=== PATIENT | female | born 1990 | race Caucasian/White ===

== ENCOUNTER 2020-08-13 12:27 | Outpatient (CLI) | payer BC, MEDICAID, SELFPAY ==
--- NOTE | ~2020-08-13 | US_ITS ---
EXAMINATION: US OB <= 14 weeks fetus DATE: 08/13/2020 13:02 INDICATION: Gestational dating TECHNIQUE: Real-time transabdominal obstetric ultrasound. FINDINGS: No prior studies for comparison. The uterus measures 10.5 x 6.9 x 7 cm. There is an intrauterine gestational sac, with pole iden tified. The crown rump length measures 2.25 cm, which correlates with a estimated gestational age of 9 weeks 0 days. heart tones are identified measuring 169 bpm. The ovaries are not visualized . IMPRESSION: 1. SL IUP with an EGA of 9 weeks, 0 days (EDC by current ultrasound of 03/18/2021). Reviewed, dictated and finalized at location A. INE I COREMAKER IMPRESSION: 1. SL IUP with an EGA of 9 weeks, 0 days (EDC by current ultrasound of ).
== END 2020-08-13 12:28 | disposition home or self-care (01) ==
PROVIDERS: Visit Provider Physician Assistant
DX: Z34.91 Encounter for supervision of normal pregnancy, unspecified, first trimester (principal); Z3A.09 9 weeks gestation of pregnancy
CPT/HCPCS: 76801

== ENCOUNTER 2020-10-21 15:35 | Outpatient (CLI) | payer BC, MEDICAID, SELFPAY ==
--- NOTE | ~2020-10-21 | US_ITS ---
EXAMINATION: US OB /maternal detail DATE: 10/21/2020 16:20 INDICATION: Routine care. TECHNIQUE: Real-time ultrasound of the pelvis was performed. COMPARISON: Ultrasound 08/13/2020 FINDINGS: There is a single living fetus in vertex presentation. The placenta is posterior, 5.8 cm from the ce rvix. heart rate is 147 beats per minute (bpm). The amniotic fluid index is 13.5 cm, which is n ormal. The following biometric data were obtained: Biparietal diameter (BPD): 4.3 cm; head circumference (HC): 16.2 cm; abdominal circumference (AC): 13 .7 cm; femur length (FL): 2.9 cm. These measurements are concordant. Estimated weight is 271 g +/- 41 g, which correlates with 57th percentile when 03/18/21 is used as estimated date of delivery. As single measurements, these parameters are each equal to the following estimated gestational ages: BPD: 19 weeks 1 days. HC: 19 weeks 0 days. AC: 19 weeks 1 days. FL: 19 weeks 0 days. estimated gestational age based solely on measurements from this exam is 19 weeks 1 days +/- 1 weeks 2 days. The cerebral ventricles, cerebellum, cisterna magna, nuchal fold, and visualized portions of the spin e are normal. The heart is normal. The diaphragm, stomach, kidneys, and bladder are normal. There are two umbilical arteries to yield a 3-vessel cord. The cord insertion is normal. IMPRESSION: 1. Single living fetus in vertex presentation. 2. Estimated weight is 271 g +/- 41 g, which correlates with 57th percentile when 03/18/21 is u sed as estimated date of delivery. This date was set by ultrasound on 08/13/2020. 3. Normal anatomic survey. Reviewed, dictated and finalized at location A. TAILOR IMPRESSION: 1. Single living fetus in vertex presentation. 2. Estimated weight is 271 g +/- 41 g, which correlates with 57th percen tile when 03/18/21 is used as estimated date of delivery. This date was set by shari alvarez on 08/13/2020. 3. Normal anatomic survey.
== END 2020-10-21 15:36 | disposition home or self-care (01) ==
PROVIDERS: PCP Physician Assistant; Visit Provider Physician Assistant
DX: Z34.02 Encounter for supervision of normal first pregnancy, second trimester (principal); Z3A.19 19 weeks gestation of pregnancy
CPT/HCPCS: 76805

== ENCOUNTER 2021-01-06 13:00 | Outpatient (CLI) | payer BC, MEDICAID, SELFPAY ==
--- NOTE | ~2021-01-06 | US_ITS ---
EXAMINATION: US OB follow up DATE: 01/06/2021 13:34 INDICATION: Routine care during early third trimester of TECHNIQUE: Real-time ultrasound of the pelvis was performed. The interpreting radiologist was not pre sent for the study. COMPARISON: 10/21/2020 and 08/13/2020 FINDINGS: There is a single living fetus in vertex presentation. The placenta is posterior. heart rate i s 131 beats per minute (bpm). The amniotic fluid volume is subjectively normal. The following biometric data were obtained: BPD: 7.5 cm -> 30 weeks 1 days Head circumference: 28.9 cm -> 31 weeks 6 days Abdominal circumference: 26.3 cm -> 30 weeks 3 days Femur length: 5.8 cm -> 30 weeks 2 days These measurements are concordant. Head circumference to abdominal circumference ratio: 1.10 (normal range 0.96-1.18). Estimated weight: 1583 g (+/-) 237 g or 3 lbs. 8 oz. (+/-) 8 oz. IMPRESSION: 1. Single living fetus in vertex presentation with heart rate of 131 bpm. 2. Estimated weight is 60th percentile by Hadlock criteria when 03/18/2021 is used as the estima kierra date of delivery (DEVANG) based upon earliest ultrasound performed at this institution on 08/13/2020 . Please correlate with clinical information or earlier ultrasounds for most accurate DEVANG. Reviewed, dictated and finalized at location A. IMPRESSION: 1. Single living fetus in vertex presentation with heart rate of 131 bpm. 2. Estimated weight is 60th percentile by Hadlock criteria when 03/18/2021 is used as the estimated date of delivery (DEVANG) based upon earliest ultrasound performed at this institution on 08/13/2020. Please correlate with clinical in formation or earlier ultrasounds for most accurate DEVANG.
== END 2021-01-06 13:01 | disposition home or self-care (01) ==
PROVIDERS: Visit Provider Physician Assistant
DX: Z34.90 Encounter for supervision of normal pregnancy, unspecified, unspecified trimester (principal); Z3A.00 Weeks of gestation of pregnancy not specified
CPT/HCPCS: 76816

== ENCOUNTER 2021-02-05 11:43 | Outpatient (CLI) | payer MEDICAID, SELFPAY ==
[2021-02-05] MEDS: BETAMETHASONE SOD PHOS/ACETATE 30 MG/5 ML VIAL 12 MG IM (12:24)
== END 2021-02-05 11:44 | disposition home or self-care (01) ==
LOC: ANHOBOP 11:57
PROVIDERS: Visit Provider Obstetrics & Gynecology
DX: R06.2 Wheezing (principal)
CPT/HCPCS: 96372; J0702

== ENCOUNTER 2021-02-08 18:59 | Observation (INO) | payer MEDICAID, SELFPAY ==
--- NOTE | 2021-02-08 19:00 | OBADM ---
This patient, Karoline Berrios, admitted to the OB room Labor/Delivery/Recovery 103 for observation. Patient/family oriented to hospital policies and general routines including ID bracelet, bed and alarms, visiting hours, pain management, procedures, bathroom and other care routines, personal items, smoking policy, room service/diet, and visiting hours. Patient/Family are encouraged to report perceived risks to care and to ask questions if they do not understand what they are told or what they should do.
--- NOTE | 2021-02-08 19:15 | PC.NURSE ---
Hx labor. Cervix has been 2 cm. FFN positive last week. Had steroids last week. Taking ProcardiaXL. States she has had increased cramping since 1130. Rates pain as 3 on pain scale.
[2021-02-08 19:46] VITALS: BP 106/58; PULSE 79
--- NOTE | 2021-02-08 19:50 | PC.NURSE ---
Dr. Castro notified of admission and assessment and orders received. Will give IV fluid and Procardia XL.
[2021-02-08] MEDS: LACTATED RINGERS 1,000 ML 999 ML IV CONT (20:07)
[2021-02-08] MEDS: NIFEdipine 30 MG TAB.ER.24 PO (20:07)
[2021-02-08 20:46] VITALS: BP 95/64; PULSE 76
[2021-02-08 21:01] VITALS: BP 97/65; PULSE 79
--- NOTE | 2021-02-08 21:11 | PC.NURSE ---
bought dinner and pt siting up to eat without problems. Pt appears comfortable.
--- NOTE | 2021-02-08 22:00 | PC.NURSE ---
Pt voices no complaints. Does not feel all contractions. IV is insfused. Cervix unchanged from last week as [address] Castro advised and will discharge pt to home.
[2021-02-08 22:01] VITALS: BP 111/60; PULSE 83
--- NOTE | 2021-02-12 08:21 | PM.OBTRLD ---
OB - Triage/Final Diagnosis Visit Information Comments/Additional reasons for admission: I have assessed the risk for this patient, Karoline Berrios, and determined that she would benefit from observation care. Final Diagnosis (1) False labor: Code(s): O47.9 - False labor, unspecified Status: Acute (2) with history of pre-term labor: Code(s): O09.219 - Supervision of with history of pre-term labor, unspecified trimester Status: Acute
== END 2021-02-08 22:37 | disposition home or self-care (01) ==
PROVIDERS: Admitting Provider Obstetrics & Gynecology; PCP Physician Assistant; Visit Provider Obstetrics & Gynecology
DX: O47.03 False labor before 37 completed weeks of gestation, third trimester (principal); O09.213 Supervision of pregnancy with history of pre-term labor, third trimester; Z3A.34 34 weeks gestation of pregnancy
CPT/HCPCS: A9270; G0378; G0379; J7120

== ENCOUNTER 2021-02-12 11:31 | Observation (INO) | payer MEDICAID, SELFPAY ==
--- NOTE | 2021-02-12 11:31 | OBADM ---
This patient, Karoline Berrios, admitted to the OB room OB Post 111 for observation. Patient/family oriented to hospital policies and general routines including ID bracelet, bed and alarms, visiting hours, pain management, procedures, bathroom and other care routines, personal items, smoking policy, room service/diet, and visiting hours. Patient/Family are encouraged to report perceived risks to care and to ask questions if they do not understand what they are told or what they should do.
[2021-02-12 12:31] VITALS: BP 96/54; PULSE 90
[2021-02-12 12:46] VITALS: BP 100/46; PULSE 84
[2021-02-12 13:01] VITALS: BP 95/49; PULSE 91
--- NOTE | 2021-02-12 13:41 | PM.OBTRLD ---
OB - Triage/Final Diagnosis Visit Information Comments/Additional reasons for admission: I have assessed the risk for this patient, Karoline Berrios, and determined that she would benefit from observation care. Evaluation Vital signs: Vital Signs - 24 hr 02/12/21 12:31 02/12/21 12:46 02/12/21 13:01 Pulse Rate 90 84 91 Blood Pressure 96/54 L 100/46 L 95/49 L Final Diagnosis (1) False labor: Code(s): O47.9 - False labor, unspecified Status: Acute (2) with history of pre-term labor: Code(s): O09.219 - Supervision of with history of pre-term labor, unspecified trimester Status: Acute
[2021-02-12 17:54] VITALS: BMI 25.7
== END 2021-02-12 13:20 | disposition home or self-care (01) ==
PROVIDERS: Admitting Provider Obstetrics & Gynecology; PCP Physician Assistant; Visit Provider Obstetrics & Gynecology
DX: O47.03 False labor before 37 completed weeks of gestation, third trimester (principal); Z3A.35 35 weeks gestation of pregnancy
CPT/HCPCS: G0378; G0379

== ENCOUNTER 2021-02-25 10:44 | Outpatient (RCR) | payer BC, MEDICAID, SELFPAY ==
[2021-02-04 13:20] VITALS: BP 102/61; PULSE 93
[2021-02-04] MEDS: BETAMETHASONE SOD PHOS/ACETATE 30 MG/5 ML VIAL 12 MG IM (13:20)
[2021-02-11 11:38] VITALS: BP 94/57; PULSE 93
[2021-02-18 12:00] VITALS: BP 96/67; PULSE 84
--- NOTE | ~2021-02-25 | US_ITS ---
EXAMINATION: US OB BPP wo non-stress DATE: 02/04/2021 13:34 CDT INDICATION: Risk of labor. Evaluate well-being. TECHNIQUE: Real-time transabdominal obstetric ultrasound. FINDINGS: No prior studies for comparison. There is a single living fetus in vertex presentation. The placenta is posterior/fundal without plac enta previa. cardiac activity and movement is noted with a heart rate of 141 beats per minute. Biophysical profile: breathin of 2 movement: 2 of 2 tone: 2 of 2 Amniotic flud pocket: 2 of 2 Total score: 8 of 8 IMPRESSION: 1. Single living intrauterine in vertex presentation. 2: Total biophysical profile score of 8/8. Reviewed, dictated and finalized at location B.
--- NOTE | ~2021-02-25 | US_ITS ---
EXAMINATION: US OB BPP wo non-stress DATE: 02/11/2021 11:42 CDT INDICATION: labor TECHNIQUE: Real-time transabdominal obstetric ultrasound. FINDINGS: Ultrasound dated 02/04/2021 There is a single living fetus in vertex presentation. The placenta is fundal without placenta previ a. cardiac activity and movement is noted with a heart rate of 141 beats per minute. Biophysical profile: breathin of 2 movement: 2 of 2 tone: 2 of 2 Amniotic flud pocket: 2 of 2 Total score: 8 of 8 IMPRESSION: 1. Single living intrauterine in vertex presentation. 2: Total biophysical profile score of 8/8. Reviewed, dictated and finalized at location A.
--- NOTE | ~2021-02-25 | US_ITS ---
EXAMINATION: US OB BPP wo non-stress DATE: 02/25/2021 12:06 INDICATION: Third trimester. History of labor. TECHNIQUE: Real-time pelvic ultrasound was performed. COMPARISON: Ultrasound 02/18/2021 FINDINGS: There is a single living fetus in vertex presentation. The placenta is posterior. heart rate i s 138 beats per minute (bpm). Biophysical profile performed by the technologist: breathing (30 sec sustained breathing in 30 minutes): 2 out of 2 movement (3 gross body movements in 30 minutes): 2 out of 2 tone (one episode of fvmepva-uokskegce-qtjgzjt limb movement): 2 out of 2 Amniotic fluid pocket (2 cm): 2 out of 2 Total score: 8 out of 8 IMPRESSION: 1. Single living fetus in vertex presentation. 2. Biophysical profile 8 out of 8. Reviewed, dictated and finalized at location A.
--- NOTE | ~2021-02-25 | US_ITS ---
EXAMINATION: US OB BPP wo non-stress DATE: 02/18/2021 12:13 CDT INDICATION: History of labor TECHNIQUE: Real-time transabdominal obstetric ultrasound. FINDINGS: 02/11/2021 There is a single living fetus in vertex presentation. The placenta is posterior without placenta pr evia. cardiac activity and movement is noted with a heart rate of 129 beats per minute. Biophysical profile: breathin of 2 movement: 2 of 2 tone: 2 of 2 Amniotic flud pocket: 2 of 2 Total score: 8 of 8 IMPRESSION: 1. Single living intrauterine in vertex presentation. 2: Total biophysical profile score of 8/8. Reviewed, dictated and finalized at location B.
[2021-02-25 14:46] VITALS: BP 94/60; PULSE 75
== END 2021-04-06 07:30 | disposition home or self-care (01) ==
LOC: ANHOBOP 10:44
PROVIDERS: Visit Provider Obstetrics & Gynecology
DX: O09.893 Supervision of other high risk pregnancies, third trimester (principal); Z3A.34 34 weeks gestation of pregnancy; Z3A.35 35 weeks gestation of pregnancy; Z3A.36 36 weeks gestation of pregnancy; Z3A.37 37 weeks gestation of pregnancy
CPT/HCPCS: 59025; 76819; 96372; J0702

== ENCOUNTER 2021-03-05 23:16 | Inpatient (IN) | payer MEDICAID, SELFPAY ==
--- OUTSIDE RECORDS SUMMARY | 2021-03-05 23:37 | XMS_ITS | Encounter Summary ---
:1990 Author Care Team Providers Name Role Phone Kenney Castro MD Cps Team Lead [phone] Reason for Visit ob routine visit Assessment and Plan 1. Routine care ? urinalysis, dipstick ? US, obstetric, biophysical profile + non-stress test 2. 3. Homozygous methylenetetrahydr ofolate reductase mutation Discussion Note: None recorded.Patient educational handouts: No information available. Plan of Care Reminders Provider Appointments Ob 15 Aziza M 03/10/2021 HANANE Kan 9:15AM Lab Urinalysis, In-Of fice Order Dipstick 03/03/2021 Referral None recorded. ? ? Procedures None recorded. ? ? Surgeries None recorded. ? ? Imaging US, Obstetric, [facility] Biophysical Profile + 03/03/2021 Hospital ( Radiology) Non-stress Test Medications Name Start Date ? ? albuterol sulfate HFA 90 mcg/actuation aerosol inhaler ? INHALE 2 PUFFS EVERY 4 HOURS BY MOUTH aspirin 81 mg tablet,delayed release ? TAKE 1 TABLET BY MOUTH EVERY DAY betamethasone acetate and sodium phos 6 mg/mL suspensi on for injection ? Take 2 mL every day by injection route for 2 days. cyanocobalamin (vit B-12) 1,000 mcg/mL injection solut ion ? Inject 1 mL every month by subcutaneous route.
--- OUTSIDE RECORDS SUMMARY | 2021-03-05 23:37 | XMS_ITS | Encounter Summary ---
:1990 Author Care Team Providers Name Role Phone Kenney Castro MD Therapeutic Strategy Lead [phone] Reason for Visit ob routine visit Cc Pt is having contractions very spaced apart about 1 time a week. Pt is having a little lower abdominal cramping like menstrual cramps, No spotting, fluid leakage. Baby moving well. Assessment and Plan Assessment Note JEFFRY Albarado 1. Routine care FIDELIA at 28 weeks. com plicated by MTHFR, recurrent miscarriage, and history of premature delivery. GTT compl eted today. Ordered third trimester US and provided information on kick count s. Plan to administer Tdap at next visit. RTC in 2 weeks. ? Boostrix Tdap 2.5 Lf unit- 8 mcg-5 Lf/0.5 mL intramuscular syringe ? US, obstetric, 3rd trimest er ? counting your baby's kicks : care instructions ? kick counts ? CBC - Please fax results t o [facility] [phone] ? urinalysis, dipstick 2. screening ? glucose tolerance test, po st-50G, 1-hour - Please fax results to [facility] [phone] 3. Venereal disease screening ? RPR (rapid plasma reagin), serum - Please fax results to [facility] [phone] ? HIV 1+2 AB + HIV 1 p24 Ag, qualitative immunoassay, serum - Please fax results to [facility] 4. 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 Continue folic acid, ASA, and progesterone. B12 i
--- OUTSIDE RECORDS SUMMARY | 2021-03-05 23:37 | XMS_ITS | Encounter Summary ---
:1990 Author Care Team Providers Name Role Phone Kenney Castro MD Physical Therapy Teacher [phone] Reason for Visit ob routine visit patient complains of being light headed and dizzy at times Assessment and Plan 1. Routine care ? urinalysis, dipstick 2. History of miscarriage 3. History of premature delivery 4. Homozygous methylenetetrahydr ofolate reductase mutation 5. Aortocaval compression counselled to stand, turn to s roshni, walk, or lay on left side Discussion Note: None recorded.Patient educational handouts: No information available. Plan of Care Reminders Provider Appointments Ob 15 Aziza M 03/10/2021 HANANE Kan 9:15AM Lab Urinalysis, In-Of fice Order Dipstick 01/07/2021 Referral None ? ? recorded. Procedures None ? ? recorded. Surgeries None ? ? recorded. Imaging None ? ? recorded. Medications Name Start Date ? ? albuterol sulfate HFA 90 mcg/actuation aerosol inhaler ? INHALE 2 PUFFS EVERY 4 HOURS BY MOUTH aspirin 81 mg tablet,delayed release ? TAKE 1 TABLET BY MOUTH EVERY DAY betamethasone acetate and sodium phos 6 mg/mL suspensi on for injection ? Take 2 mL every day by injection route for 2 days. cyanoc
--- OUTSIDE RECORDS SUMMARY | 2021-03-05 23:37 | XMS_ITS | Encounter Summary ---
:1990 Author Care Team Providers Name Role Phone Kenney Castro MD Structural Fitter [phone] Reason for Visit ob routine visit CC Pt states still feels the same as las t visit, still having the contractions off and on Assessment and Plan Assessment Note ANDRES Hurst 1. Routine care FIDELIA at 35w6d. compli cated by MTHFR, recurrent miscarriage, and history of premature delivery. Continue weekly NST and BPP. RTC in [address] Castro. ? urinalysis, dipstick ? CBC - Please fax results t o [facility] [phone] 2. screening Routine screening. ? culture, vaginal/rectal, s treptococcus group B - Please fax results to [facility] [phone] 3. Venereal disease screening Routine screening. Will contac t pt with results. ? HSV (1+2) DNA, qual, PCR, unspecified specimen - Please fax results to [facility] [phone] ? bacterial vaginosis + vagi nitis panel, vaginal - Please fax results to [facility] [phone] 4. Threatened premature labor - not delivered H/o delivery at 36 wee ks. Still having irregular contractions and back pain. Steroids administered 02/04 an d 02/05. Continue Procardia until 37 weeks and weekly NST/BPP. WTC/WLB reviewed. 5. Recurrent miscarriage RPL protocol. 6. Homozygous methylenetetrahydr ofolate reductase mutation Homozygous for the MT
--- OUTSIDE RECORDS SUMMARY | 2021-03-05 23:37 | XMS_ITS | Encounter Summary ---
:1990 Author Care Team Providers Name Role Phone Kenney Castro MD Distillation Operator Helper [phone] Reason for Visit ob routine visit Assessment and Plan 1. Routine care ? urinalysis, dipstick 2. Homozygous methylenetetrahydr ofolate reductase mutation 3. Female sterilization Discussion Note: None recorded.Patient educational handouts: No information available. Plan of Care Reminders Provider Appointments Ob 15 Aziza Vasquez 03/10/2021 HANANE Kan 9:15AM Lab Urinalysis, In-Of fice Order Dipstick 02/24/2021 Referral None ? ? recorded. Procedures None [...] 1 mL every month by subcutaneous route. docusate sodium 100 mg capsule ? TAKE 1 CAPSULE BY MOUTH TWICE A DAY NEEDED folic acid 1 mg tablet ? TAKE 2 TABLETS BY MOUT
--- OUTSIDE RECORDS SUMMARY | 2021-03-05 23:37 | XMS_ITS ---
:1990 Author Care Team Providers Name Role Phone RUTH MARTIN MD Horticultural Agent [phone] Allergies Code Code System Name Reaction Severity Status Onset NKDA ? Medications Name Status Start Date Stop Date ? ? albuterol sulfate HFA 90 mcg/actuation aerosol inhaler Active ? Not available INHALE 2 PUFFS EVERY 4 HOURS BY MOUTH amoxicillin 875 mg-potassium Completed ? 04/2020 clavulanate 125 mg tablet aspirin 81 mg tablet,delayed release Active ? Not available TAKE 1 TABLET BY MOUTH EVERY DAY azithromycin 500 mg tablet Completed ? 01/20 TAKE 2 TABLETS SINGLE DOSE betamethasone acetate and sodium phos 6 mg/mL suspension for inj ection Active ? Not available Take 2 mL every day by injection route for 2 days. Calcium with Vitamin D 600 mg (1,500 mg)-400 unit tablet Complet ed ? 08/05/2020 Take 1 tablet twice a day by oral route. clindamycin HCl 300 mg capsule Completed ? 1 10/06/2019 Condoms-Carl Lubricated Completed ? 08/11/20 20 Take 1 device by miscell. route. cyanocobalamin (vit B-12) 1,000 mcg/mL injection solution Active ? Not available Inject 1 mL every month by subcutaneous route. docusate sodium 100 mg capsule Active ? N ot available TAKE 1 CAPSULE BY MOUTH TWICE A DAY NEEDED folic acid 1 mg tablet Active ? Not avail able TAKE 2 TABLETS BY MOUTH TWICE A DAY DIRECTED Linzess 290 mcg capsule Completed ? 08/05/20 20 Macrobid 100 mg capsule Completed ? 08/05/20 20 Take 1 capsule every 12 hours by oral route for 10 days.
--- OUTSIDE RECORDS SUMMARY | 2021-03-05 23:37 | XMS_ITS | Encounter Summary ---
:1990 Author Care Team Providers Name Role Phone Kenney Castro MD Manager Night [phone] Reason for Visit ob routine visit CC Pt states she was having some contrac tions, hips, lower back pain. Started 01/28/21-01/29/21, slower less intense 01/30/21. has not had any regular since. Cramping on and off, No spotting, fluid leakage. Assessment and Plan Assessment Note ANDRES HurstS 1. Routine care FIDELIA at 33 wks 6 days. Pregnanc y complicated by MTHFR, recurrent miscarriage, and history of premature de livery. RTC in 2 weeks. ? urinalysis, dipstick 2. Recurrent miscarriage RPL protocol. 3. 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 Continue folic acid, ASA, and progesterone. B12 administered 01/20. 4. Threatened premature labor - not delivered Contractions about 5-6 days ag o, have since resolved. Still having back pain. H/o delivery at 36 weeks. fibronectin performed today. Will notify pt of results. WTC/WLB reviewed. ? fibronectin, , vagina l fluid 5. Female sterilization Pt desires pp tubal ligation. ? tubal ligation (SURG) Discussion Note: None recorded.Patient educational handouts: No information available. Plan of Care Reminders Provider Appointments Ob 15 Aziza M 03/10/2021 HANANE Kan 9:15AM Lab Urinalysis, In-Of fice Order Dipstick 02/03/2021
--- OUTSIDE RECORDS SUMMARY | 2021-03-05 23:37 | XMS_ITS | Encounter Summary ---
:1990 Author Care Team Providers Name Role Phone Kenney Castro MD Scholastic Aptitude Test Grader [phone] Reason for Visit ob routine visit CC having some lovely carr contraction s. No spotting or fluid leakage. Baby moving well. Assessment and Plan Assessment Note MARY ArroyoS 1. Routine care FIDELIA at 31w6d weeks. complicated by MTHFR, recurrent miscarriage, and history of premature delivery. RTC i n 2 weeks. ? urinalysis, dipstick 2. Recurrent miscarriage RPL protocol. 3. 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 Continue folic acid, ASA, and progesterone. B12 injection administered today. ? cyanocobalamin (vit B-12) 1,000 mcg/mL injection solution 4. Aortocaval compression Continue use of maternity belt and recumbent position when symptomatic. Discouraged prolonged sitting, lying on back. Discussion Note: None recorded.Patient educational handouts: No information available. Plan of Care Reminders Provider Appointments Ob 15 Aziza Vasquez 03/10/2021 HANANE Kan 9:15AM Lab Urinalysis, In-Of fice Order Dipstick 01/20/2021 Referral None ? ? recorded. Procedures None ? ? recorded. Surgeries None ? ?
[2021-03-05 23:46] VITALS: BP 107/66; PULSE 88
[2021-03-05] MEDS: LACTATED RINGERS 1,000 ML 125 ML IV CONT (23:48)
[2021-03-05 23:55] VITALS: BMI 26.4
--- NOTE | 2021-03-05 23:56 | LDADM ---
This patient, Karoline Berrios, was admitted to Labor/Delivery/Recovery 106 on 03/05/21 at 23:16. Plans for labor, pain management and were discussed with patient. Patient/family oriented to hospital policies and general routines including ID bracelet, bed and alarms, visiting hours, pain management, procedures, bathroom and other care routines, personal items, smoking policy, room service/diet and guest tray routines, security routines, and visiting hours. Patient/Family are encouraged to report perceived risks to care and to ask questions if they do not understand what they are told or what they should do. See OBIX for further documentation.
[2021-03-05 23:58] LABS: Basophils Percent Auto 0.2 % (0.2-1.2); Eosinophils Absolute Auto 0.2 K/mm3 (0-0.3); Eosinophils Percent Auto 1.5 % (0-4.4); Hemoglobin 12.2 g/dL (12.0-15.0); Immature Granulocyte Absolute 0.05 K/mm3 (0.00-0.031); Immature Granulocyte Percent A 0.5 % (0-0.5); Lymphocytes Absolute Auto 1.88 K/mm3 (0.9-3.2); Lymphocytes Percent Auto 17.7 % (18.3-44.2); Mean Corpuscular HGB Conc 33.9 g/dl (32-36); Mean Corpuscular Hemoglobin 31.2 pg (26-34); Mean Corpuscular Volume 92.1 fl (80-100); Mean Platelet Volume 12.1 fl (7.4-10.4); Monocytes Absolute Auto 0.9 K/mm3 (0.1-0.6); Monocytes Percent Auto 8.4 % (2.6-8.5); Neutrophils Absolute Auto 7.6 K/mm3 (1.3-6.7); Neutrophils Percent Auto 71.7 % (45.5-73.1); Platelet Count Result 136 k/mm3 (150-375); Red Blood Count 3.91 M/mm3 (4.2-5.4); Red Cell Distribution Width 12.7 % (11.5-14.5); White Blood Count 10.6 K/mm3 (4.5-10.0)
[2021-03-06] VITALS (96 sets, daily range): BP systolic 80–124; BP diastolic 39–73; PULSE 60–113; RESP 12–16; TEMP 36.3–37.1; O2SAT 98–100
[2021-03-06] MEDS: LACTATED RINGERS 1,000 ML 125 ML IV CONT (02:24)
[2021-03-06] MEDS: OXYTOCIN 30 UNITS/NS 500 ML 30 UNITS/500 ML BAG IV CONT (02:27)
--- NOTE | 2021-03-06 03:12 | P.PNAN_ITS ---
Anes - Eval Pre Procedure Procedure: labor epidural Date/Time: 03/06/21 03:12 Surgeon: declan Pre Op Diagnosis: Leaking Fluid Patient Data Age: 30 Gender: F Height: 1.65 m Weight: 72 kg Last Vital Signs Temp 36.3 C L 03/06/21 00:55 Pulse 79 03/06/21 03:01 BP 104/59 L 03/06/21 03:01 Allergies Allergy/AdvReac Type Severity Reaction Status Date / Time No Known Allergies Allergy Verified 02/17/21 13:23 Home Medications Medication Instructions Recorded Confirmed Type albuterol sulfate 1 puff INHALATION DAILY PRN 02/08/21 02/25/21 History aspirin 81 mg PO DAILY 02/08/21 02/25/21 History docusate sodium 100 mg PO BID 02/08/21 02/25/21 History folic acid 2 mg PO BID 02/08/21 02/25/21 History [id number] 1 tablet PO DAILY 02/08/21 02/25/21 History progesterone micronized 200 mg PO BID 02/08/21 02/25/21 History Laboratory Tests 03/05/21 03/05/21 03/05/21 23:42 23:42 23:42 WBC 10.6 K/mm3 H K/mm3 (4.5-10.0) RBC 3.91 M/mm3 L M/mm3 (4.2-5.4) Hgb 12.2 g/dL g/dL (12.0-15.0) Hct 36.0 % L % (37.0-47.0) MCV 92.1 fl fl (80-100) MCH 31.2 pg pg (26-34) MCHC 33.9 g/dl g/dl (32-36) RDW 12.7 % % (11.5-14.5) Plt Count 136 k/mm3 L k/mm3 (150-375) MPV 12.1 fl H fl (7.4-10.4) Immature Gran % (Auto) 0.5 % % (0-0.5) Neut % (Auto) 71.7 % % (45.5-73.1) Lymph % (Auto) 17.7 % L % (18.3-44.2) Rabun % (Auto) 8.4 % % (2.6-8.5) Eos % (Auto) 1.5 % % (0-4.4) Baso % (Auto) 0.2 % % (0.2-1.2) Lymph # (Auto) 1.88 K/mm3 K/mm3 (0.9-3.2) Rabun # (Auto) 0.9 K/mm3 H K/mm3 (0.1-0.6) Eos # (Auto) 0.2 K/mm3 K/mm3 (0-0.3) Baso # (Auto) 0.0 K/mm3 K/mm3 (0.0-0.1) Abs Immat Gran (auto) 0.05 K/mm3 H K/mm3 (0.00-0.031) Absolute Neuts (auto) 7.6 K/mm3 H K/mm3 (1.3-6.7) Absolute Nucleated RBC 0.0 K/mm3 K/mm3 (0.0-0.012) Nucleated RBC % 0.0 % % (0.0-0.2) RPR Pending Blood Type O Positive Antibody Screen Negative Patient hx anesthesia problems: none Family hx anesthesia problems: none [facility] Family History Family History (Updated 02/17/21 @ 13:38 by Bello Alicia RN) Grandparent FHx: brain aneurysm Father Lung cancer Son Asthma Mother Endometriosis Other Patient's father is Social History Social History Smoking status: Former smoker Smoking end date: 09/28/16 Substance use: never Spiritual care concerns: No Exam Day of Procedure 03/06/21 03:12
--- NOTE | 2021-03-06 05:51 | PM.IMHP ---
H&P: HPI History of Present Illness Date/Time: 03/06/21 05:51 Karoline is a @38.2wks (DEVANG 03/18/21) who presented to L&D w/ SROM. ROM+ was confirmed positive and she was found to be 5cm; desiring epidural. She made adequate change throughout the night. She reported good movement. She denied vaginal bleeding. She has had regular care with Dr. Castro. 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 - H/o contractions this Chief Complaint: leaking fluid Review of Systems Review of Systems: All systems reviewed & are unremarkable except as noted in HPI and below (HPI) [facility] Family History Family History Grandparent FHx: brain aneurysm Father Lung cancer Son Asthma Mother Endometriosis Other Patient's father is Social History Social History Smoking status: Former smoker Smoking end date: 09/28/16 Substance use: never Spiritual care concerns: No Meds Home Medications and Allergies Home Medications Medication Instructions Recorded Confirmed Type albuterol sulfate 1 puff INHALATION DAILY PRN 02/08/21 02/25/21 History aspirin 81 mg PO DAILY 02/08/21 02/25/21 History docusate sodium 100 mg PO BID 02/08/21 02/25/21 History folic acid 2 mg PO BID 02/08/21 02/25/21 History [id number] 1 tablet PO DAILY 02/08/21 02/25/21 History progesterone micronized 200 mg PO BID 02/08/21 02/25/21 History Allergies Allergy/AdvReac Type Severity Reaction Status Date / Time No Known Allergies Allergy Verified 02/17/21 13:23 Vital Signs Vital Signs - 24 hr 03/05/21 23:46 03/06/21 00:01 03/06/21 00:16 Temperature Pulse Rate 88 80 77 Blood Pressure 107/66 114/67 107/58 L Pulse Oximetry 03/06/21 00:31 03/06/21 00:46 03/06/21 00:48 Temperature Pulse Rate 77 74 75 Blood Pressure 104/56 L 85/62 L 103/56 L Pulse Oximetry 03/06/21 00:55 03/06/21 01:01 03/06/21 01:16 Temperature 36.3 C L Pulse Rate 73 72 Blood Pressure 103/53 L 90/64 L Pulse Oximetry 03/06/21 01:31 03/06/21 01:46 03/06/21 02:01 Temperature Pulse Rate 71 69 69 Blood Pressure 98/51 L 94/46 L 80/42 L Pulse Oximetry 03/06/21 02:16 03/06/21 02:31 03/06/21 02:46 Temperature Pulse Rate 65 67 75 Blood Pressure 101/54 L 108/55 L 109/60 Pulse Oximetry 03/06/21 03:01 03/06/21 03:16 03/06/21 03:17 Temperature Pulse Rate 79 87 Blood Pressure 104/59 L 109/54 L Pulse Oximetry 100 03/06/21 03:18 03/06/21 03:21 03/06/21 03:22 Temperature Pulse Rate 83 89 Blood Pressure 120/68 118/62 Pulse Oximetry 100 03/06/21 03:23 03/06/21 03:24 03/06/21 03:26 Temperature Pulse Rate 86 75 86 Blood Pressure 116/70 114/65 123/68 Pulse Oximetry 03/06/21 03:27 03/06/21 03:29 03/06/21 03:31 Temperature Pulse Rate 75 74 Blood Pressure 124/66 102/73 Pulse Oximetry 100 03/06/21 03:32 03/06/21 03:34 03/06/21 03:36 Temperature Pulse Rate 72 75 Blood Pressure 111/64 110/59 L Pulse Oximetry 100 03/06/21 03:37 03/06/21 03:42 03/06/21 03:46 Temperature Pulse Rate 65 Blood Pressure 88/39 L Pulse Oximetry 100 100 03/06/21 03:47 03/06/21 03:52 03/06/21 03:57 Temperature Pulse Rate 67 Blood Pressure 111/64 Pulse Oximetry 100 100 100 03/06/21 04:01 03/06/21 04:02 03/06/21 04:07 Temperature Pulse Rate 74 Blood Pressure 109/63 Pulse Oximetry 100 100 03/06/21 04:12 03/06/21 04:16 03/06/21 04:17 Temperature Pulse Rate 72 Blood Pressure 101/55 L Pulse Oximetry 100 100 03/06/21 04:22 03/06/21 04:27 03/06/21 04:31 Temperature Pulse Rate 72 Blood Pressure 98/53 L Pulse Oximetry 100 99 03/06/21 04:32 03/06/21 04:37 03/06/21 04:42 Temperature Pulse Rate Blood Pressure
--- NOTE | 2021-03-06 06:03 | WPDHPUPDATE1 ---
History and Physical Update Update Date/Time: 03/06/21 06:03 History and Physical has been reviewed, including an updated exam of the patient. There are NO changes in the patient's condition. Risks, benefits, and alternatives have been discussed and questions answered. Patient agrees to proceed with procedure.
[2021-03-06] MEDS: OXYTOCIN 30 UNITS/NS 500 ML 30 UNITS/500 ML BAG 125 UNITS IV CONT (06:11)
--- NOTE | 2021-03-06 06:16 | P.PCNOB_ITS ---
OB - Delivery Note Procedure Delivery date: 03/06/21 events: Premature Rupture of Membrane (SROM) Delivery monitor: external FHT and external uterine Route of delivery: Laceration Description: Perineal - 2nd Degree Delivery repair: vicryl Quantitative Blood Loss (ml): 100 Anesthesia type: Epidural Disposition: floor [place] Date of : 03/06/21 Time of : 05:29 Weeks of gestation at delivery: 38 (.2) Infant gender: Male Weight (pounds): 7 Weight (ounces): 14 presentation: vertex position: Right Occiput Anterior Placenta delivery description: Expressed cord vessel description: 3 Vessels, Nuchal Cord, Loose and Delayed Cord Clamping score one minute: 9 score five minutes: 9 Narrative: Karoline progressed to complete dilation with strong desire to push. With good maternal effort she delivered the head over intact perineum. A nuchal cord was palpated but loose and delivered through. She easily delivered the 's shoulders and body without complications. The was immediately placed skin to skin and had spontaneous cry. Delayed cord clamping was performed. The umbilical cord was then clamped and cut. A segment of the cord was collected for cord gases. Remaining cord blood was collected for typing. With Pitocin running and gentle downward traction on the cord, the placenta delivered without complications. Bimanual massage was performed and good uterine tone with minimal bleeding was noted. Patient was examined and found to have a second-degree perineal laceration. The laceration was repaired in the normal fashion using 2 0 Vicryl. Good fundal tone and minimal bleeding were noted. The patient was then straight catheterized as a [place] had been placed after epidural placement due to quick delivery. Sponge, lap, instrument, and needle counts were correct at the end the procedure. Mom and baby were left bonding in the birthing suite in stable condition.
[2021-03-06] MEDS: BENZOCAINE 20% AER SPR (*SP) 56 GM CAN 1 SPRAY TOPICAL (07:33)
[2021-03-06] MEDS: WITCH HAZEL 40 PADS 1 PAD TOPICAL (07:33)
--- NOTE | 2021-03-06 08:26 | OBPPTRN ---
[id number] Patient transferred to post room #284 via W/C. Support person present. Oriented to unit, room, information board, rooming in, admission packet and security measures. Patient verbalizes understanding.
--- NOTE | 2021-03-06 14:07 | WPDANLDPN2 ---
Anes-Prog Note L&D Date/Time: 03/06/21 14:07 Comfortable throughout: labor Neuraxial method: epidural Epidural/Spinal procedure site: clean & non-tender Neuro status: Neuro function grossly intact. Cardiovascular status: normal Respiratory status: normal Airway patency: baseline Mental status: baseline Post-Op hydration status: normal Vital Signs: Last Vital Signs Temp 36.8 C 03/06/21 07:54 Pulse 68 03/06/21 07:54 Resp 12 03/06/21 07:54 BP 113/60 03/06/21 07:54 Pulse Ox 100 03/06/21 07:54 Pain score (VAS): 09/06 I/O: Intake & Output 03/05/21 03/06/21 03/06/21 23:59 07:59 15:59 Intake Total 2500 Balance 2500 Post-procedural complaints: none Patient feedback: Patient satisfied with anesthetic care.
[2021-03-06] MEDS: IBUPROFEN 600 MG TABLET PO (20:32)
[2021-03-07] MEDS: IBUPROFEN 600 MG TABLET PO ×2 (03:56→11:30)
[2021-03-07 04:04] VITALS: BP 100/61; PULSE 71; RESP 16; TEMP 36.8; O2SAT 100
[2021-03-07 05:41] LABS: Hematocrit 36.7 % (37.0-47.0); Hemoglobin 11.8 g/dL (12.0-15.0)
[2021-03-07 07:36] VITALS: BP 96/59; PULSE 74; RESP 15; TEMP 36.8; O2SAT 97
--- NOTE | 2021-03-07 07:39 | WPDANLDPN2 ---
Anes-Prog Note L&D Date/Time: 03/07/21 07:39 Comfortable throughout: labor and delivery Neuraxial method: epidural Epidural/Spinal procedure site: clean & non-tender Neuro status: Neuro function grossly intact. Cardiovascular status: normal Respiratory status: normal Airway patency: baseline Mental status: baseline Post-Op hydration status: normal Vital Signs: Last Vital Signs Temp 36.8 C 03/07/21 07:36 Pulse 74 03/07/21 07:36 Resp 15 03/07/21 07:36 BP 96/59 L 03/07/21 07:36 Pulse Ox 97 03/07/21 07:36 Pain score (VAS): no complaints of pain Post-procedural complaints: none Patient feedback: Patient satisfied with anesthetic care.
[2021-03-07] MEDS: DOCUSATE SODIUM 100 MG CAPSULE PO (08:47)
[2021-03-07] MEDS: MULTIVIT/MIN/PREN/FOL AC/IRON TABLET 1 TAB PO (08:47)
--- NOTE | 2021-03-07 11:07 | P.PNOB_ITS ---
OB - PN: Subj Subjective Date/time seen: 03/07/21 11:05 PPD#1 Karoline reports doing well this morning. Her pain is controlled w/ PO meds. Her bleeding is getting electronics processor. She has tolerated regular diet. She has ambulated, voided, and passed gas. She is breast feeding. She would like her son to get circumcised. She would like to go home later today. She denies fever, chills, n/v, CP, SOB, vision changes, NIEVES, palpitations or dizziness. OB - PN: Obj Data Labs CBC & Chem 7: 03/07/21 05:35 Labs: Laboratory Results - last 24 hr 03/07/21 05:35 Hgb 11.8 L Hct 36.7 L OB - PN A/P Assessment and Plan (1) Normal vaginal delivery: Code(s): O80 - Encounter for full-term uncomplicated delivery Status: Acute Plan day: 1 Plan: routine care and discharge home (this afternoon) Comments: - F/u w/ Dr. Castro in 4-6wks - Pelvic rest; take meds as prescribed - ER return precautions: bleeding, HTN, fever, n/v/abd pain - Her son was circumcised w/o issue - Plans to have tubes tied w/ Dr. Castro Time Spent With Patient Time: Total time spent is greater than 50% in coordination of care (as documented) at patient's floor/unit and/or counseling patient: Review of Systems Review of Systems: All systems reviewed & are unremarkable except as noted in HPI and below (HPI) Exam Const: General: cooperative, healthy appearing, comfortable and no acute distress Resp: Effort & Inspection: normal respiratory effort and able to speak in complete sentences Auscultation: clear to auscultation bilaterally Cardio: Rate: regular rate GI: Inspection: normal to inspection and non-distended GI Palp: No abdominal tenderness and Yes Soft to palpation Auscultation: normal bowel sounds : Other: fundus firm Skin: General skin exam: normal color Neuro: General: patient oriented x3 Extrem: General: normal to inspection Psych: Appearance: grossly normal Affect: normal affect Attitude: cooperative
--- NOTE | 2021-03-07 13:30 | PC.NURSE ---
Patient viewed the discharge video Mother & Baby Care, The First Two Weeks . Patient was given the opportunity and encouraged to ask questions. Patient verbalized understanding of information shared and has been given the mother/baby guide for home reference.
--- NOTE | 2021-03-07 13:30 | PC.NURSE ---
Self care and infant care discharge instructions given including follow up visit date and time. Parents verbalized understanding. No questions or concerns voiced. Very pleasant and cooperative. FOB at side.
[2021-03-08 07:57] LABS: Rapid Plasma Reagin Non-Reactive (NonReactive)
[2021-03-10 11:05] VITALS: BP 109/65; PULSE 77; RESP 20; TEMP 37; O2SAT 100
--- NOTE | 2021-03-17 11:18 | PM.OBDSVD ---
DS: Admitting Diagnosis Admitting Diagnosis Admitting Diagnosis: labor/leaking fluid DS: Discharge Diagnosis Discharge Diagnosis (1) Normal vaginal delivery: Code(s): O80 - Encounter for full-term uncomplicated delivery Status: Acute OB - DS: Summary OB Procedures : NST, Ultrasound and PTL Mgmt OB Procedures Intrapartum: Spontaneous Vag Delivery OB Procedures: : None Peripartum Data Delivery Method: Natural Vaginal Laceration Description: Perineal - 2nd Degree complications: none [place] 1: Gender: Male Disposition of : home Status at Discharge Functional status at discharge: independent ambulation Overall status at discharge: patient is back to baseline Time Spent with Patient Time attestation: Total time spent providing and/or coordinating discharge services: Time spent: Less than 30 minutes Exam Const: General: cooperative, healthy appearing, comfortable and no acute distress Resp: Effort & Inspection: normal respiratory effort and able to speak in complete sentences Auscultation: clear to auscultation bilaterally Cardio: Rate: regular rate GI: Inspection: non-distended GI Palp: No abdominal tenderness and Yes Soft to palpation Auscultation: normal bowel sounds : Other: fundus firm Skin: General skin exam: normal color Neuro: General: patient oriented x3 Extrem: General: normal to inspection Psych: Appearance: grossly normal Affect: normal affect Attitude: cooperative Discharge Plan Discharge Attending physician on discharge: Sydni Jean-Baptiste Discharging Clinician: Sydni Jean-Baptiste Anticipated Discharge Date/Time: 03/07/21 14:00 Patient Disposition: Home, Self-Care Activity: may shower and pelvic rest Diet: regular Discharge Instructions: Education: Mom and Baby Guide Given to: Mother Follow-Up: Call your delivering provider's office for an appointment to be seen in: 1 Week Mom and baby should come to the [facility] for the follow-up appointment. Appointment Date/Time: Wednesday, March 10, 2021 at 11:00 am Call [phone] if you are unable to keep your appointment time. BREAST CARE: * Wear a snug supportive bra. * For engorgement discomfort: Breast Feeding: * Apply warm moist washcloths * Express milk as needed to relieve engorgement * Wear loose clothing * For sore nipples: * Identify correct latch-on * Apply warm moist washcloths before and after nursing * Air dry nipples after nursing * May apply Lansinoh cream to nipples EPISIOTOMY/PERINEAL CARE: * Until bleeding stops, use your jessica bottle after urinating * Change your pad frequently throughout the day * You may take sitz baths several times a day (fill your bathtub with warm water and soak for 20 minutes.) Do NOT bathe in the water * No tub baths until seen by your physician - You may shower ACTIVITY: * Rest as much as possible. * Do not exercise or lift anything heavier than your baby (such as laundry or other children.) * Avoid stairs or driving as much as possible. * Do not put anything into the vagina. No douching, tampons, or sexual activity until seen by physician. NOTIFY PHYSICIAN IF YOU HAVE ANY QUESTIONS OR IF ANY OF THE FOLLOWING SYMPTOMS OCCUR: * If your episiotomy or incision becomes red, swollen, or more painful than what you have experienced in the hospital. * If your vaginal bleeding becomes foul smelling. * If your vaginal bleeding becomes more heavy than a period or if your bleeding changes from pink to bright red. However, you may pass an occasional walnut-sized clot once or twice for the first week . * If you experience a sharp, shooting pain in you calves. * If you discover a hard, reddened area on your breast or if you experience flu-like symptoms. DIET: * Eat regular, well-balanced meals.
== END 2021-03-07 13:50 | disposition home or self-care (01) | DRG 807 ==
LOC: ANHLDR 23:40 → ANHOB2 03-07 10:57 → ANHLDR 03-10 10:38 → ANHOB2 03-10 10:38
PROVIDERS: Admitting Provider Obstetrics & Gynecology; PCP Physician Assistant; Visit Provider Obstetrics & Gynecology
DX: O42.92 Full-term premature rupture of membranes, unspecified as to length of time between rupture and onset of labor (principal); Z37.0 Single live birth; Z3A.38 38 weeks gestation of pregnancy; O70.1 Second degree perineal laceration during delivery; O69.81X0 Labor and delivery complicated by cord around neck, without compression, not applicable or unspecified
CPT/HCPCS: 36415; 85014; 85018; 85025; 86592; 86850; 86900; 86901; A9270; J2590; J2795; J7120

== ENCOUNTER → 2021-04-20 03:26 | Outpatient (CLI) | payer MEDICAID, SELFPAY ==
[2021-04-20 19:41] LABS: SARS-CoV-2 RNA PCR Negative
== END ==
PROVIDERS: PCP Physician Assistant; Visit Provider Obstetrics & Gynecology
DX: Z01.812 Encounter for preprocedural laboratory examination (principal); Z20.822 Contact with and (suspected) exposure to COVID-19
CPT/HCPCS: C9803; U0003; U0005

== ENCOUNTER 2021-04-23 01:13 | Day surgery (SDC) | payer MEDICAID, SELFPAY ==
[2021-04-20 14:24] VITALS: BMI 22.4
--- NOTE | 2021-04-22 12:02 | WPDANESEPPF ---
Anes - Initial Pre Proc Eval Procedure: Operation Date: 04/23/21 10:30 Proposed Procedures p Laparoscopic Bilateral Salpingectomy - Kenney Castro MD Date/Time: 04/22/21 12:02 Surgeon: Kenney Castro MD Pre Op Diagnosis: electve tubal sterilization Patient Data Age: 30 Gender: F Height: 1.65 m Weight: 61.24 kg Allergies Allergy/AdvReac Type Severity Reaction Status Date / Time No Known Allergies Allergy Verified 04/23/21 08:27 Home Medications Medication Instructions Recorded Confirmed Type [id number] 1 tablet PO DAILY 02/08/21 04/23/21 History Patient hx anesthesia problems: none Family hx anesthesia problems: none PMFSH Past Medical History Medical History (Updated 04/22/21 @ 12:03 by Tacho Foster DO) Anemia Asthma Hx of multiple concussions IBS (irritable bowel syndrome) Family History Family History Grandparent FHx: brain aneurysm Father Lung cancer Son Asthma Mother Endometriosis Other Patient's father is Social History Social History Smoking packs per day: 0.5 Smoking cigarettes per day: 10.0 Years smoked: 3 Smoking pack-years: 1.50 Smoking status: Former smoker Tobacco type: cigarettes Smoking end date: 04/20/11 Alcohol intake: former Substance use: never Living arrangements: with family Spiritual care concerns: No Anes - Eval Final PreProcedure Day of Procedure 04/22/21 12:02 Patient weight: normal Heart: regular rate and rhythm Lungs: clear to auscultation and normal air movement Airway: Mallampati scale class II Neurological: alert and oriented Last oral intake: >/= 8 hours ASA classification: II Emergent: no Anesthetic plan: proceed Anesthesia type and monitoring: general ETT and standard monitoring Informed Consent: The patient's anesthetic plan and its attendant risks and benefits were discussed with the patient/family/POA. Questions were solicited and answers provided to the satisfaction of the patient/family/POA.
[2021-04-23] VITALS (8 sets, daily range): BP systolic 97–119; BP diastolic 62–77; PULSE 55–80; RESP 10–16; TEMP 36.3–36.6; O2SAT 100
[2021-04-23] MEDS: ACETAMINOPHEN 500 MG TABLET 1000 MG PO (08:34)
[2021-04-23] MEDS: LACTATED RINGERS 1,000 ML 30 ML IV CONT (08:43)
[2021-04-23] MEDS: KETOROLAC 15 MG/ML VIAL (*BKC) IV PUSH (08:44)
--- NOTE | 2021-04-23 09:26 | PM.HPGS ---
History of Present Illness History of Present Illness Consent: Risks, benefits, and alternatives have been discussed and questions answered. Patient agrees to proceed with procedure. Chief complaint: electve tubal sterilization Narrative: Karoline Berrios is a 30 year old female presenting for elective sterilization laparoscopic bilateral tubal sterilization with bilateral salpingectomy under general anesthesia. She understands it is permanent irreversible she does not desire future fertility she understands the failure rate of 3 to 11/999 with increased risk of ectopic and its sequelae. She understands if she becomes in the future she should seek emergency medical attention. She understands the this will not protect her against sexually transmitted diseases. She also understands her condition the procedure and risks involved of the surgery including but not limited to bleeding infection injury to bladder bowel pelvic vessels DVT pneumonia wound infections UTI risk of anesthesia she understands all this accepts and agrees to proceed. She has signed the [facility] of Public aid tubal consent forms and the signed consent is in the chart. Her medical history is remarkable for MTHFR, recurrent miscarriage, and history of premature delivery. Review of Systems Review of Systems: All systems reviewed & are unremarkable except as noted in HPI and below Constitutional: Constitutional: Reports no additional constitutional complaints Eyes: Eyes: Reports no additional eye complaints ENT: Reports system reviewed and no additional complaints, except as documented Cardiovascular: Cardiovascular: Reports no additional cardiovascular complaints Respiratory: Respiratory: Reports no additional respiratory complaints Gastrointestinal: Gastrointestinal: Reports no additional gastrointestinal complaints Genitourinary: Genitourinary: Reports no additional female genitourinary complaints Musculoskeletal: Musculoskeletal: Reports no additional musculoskeletal complaints Integumentary/Breasts: Skin/Breast: Reports system reviewed and no additional complaints, except as docu Neurologic: Reports system reviewed and no additional complaints, except as documented Psychiatric: Psychiatric: Reports no additional psychiatric complaints Endocrine: Endocrine: Reports no additional endocrine complaints Hematologic/Lymphatic: Hematologic/Lymphatic: Reports no additional hematologic/lymphatic complaints Allergic/Immunologic: Allergic/Immunologic: Reports no additional allergic/immunologic complaints [facility] Past Medical History Medical History (Updated 04/23/21 @ 09:39 by Kenney Castro MD) Anemia Asthma Former smoker History of genital warts History of HPV infection History of miscarriage History of premature delivery History of verrucae (wart) excision Hx of multiple concussions IBS (irritable bowel syndrome) Recurrent loss Vaginal delivery 09-07-2011, 36 wks 1. M, 7lbs 9oz, Standard Vaginal Delivery Vaginal delivery 03-06-2021, 38.2 wks 1. M, 7lbs 14oz, Standard Vaginal Delivery Family History Family History Grandparent FHx: brain aneurysm Father Lung cancer Son Asthma Mother Endometriosis Other Patient's father is Social History Social History (Updated 04/23/21 @ 09:39 by Kenney Castro MD) Smoking packs per day: 0.5 Smoking cigarettes per day: 10.0 Years smoked: 3 Smoking pack-years: 1.50 Smoking status: Former smoker Tobacco type: cigarettes Second hand tobacco smoke exposure: Yes Smoking end date: 04/20/11 Alcohol intake: former Substance use: never Substance use type: does not use Living arrangements: with family Occupation/Education: occupation 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
--- NOTE | 2021-04-23 09:29 | WPDHPUPDATE1 ---
History and Physical Update Update Date/Time: 04/23/21 09:29 History and Physical has been reviewed, including an updated exam of the patient. There are NO changes in the patient's condition. Risks, benefits, and alternatives have been discussed and questions answered. Patient agrees to proceed with procedure. Karoline Berrios is a 30 year old female presenting for elective sterilization laparoscopic bilateral tubal sterilization with bilateral salpingectomy under general anesthesia. She understands it is permanent irreversible she does not desire future fertility she understands the failure rate of 3 to 11/999 with increased risk of ectopic and its sequelae. She understands if she becomes in the future she should seek emergency medical attention. She understands the this will not protect her against sexually transmitted diseases. She also understands her condition the procedure and risks involved of the surgery including but not limited to bleeding infection injury to bladder bowel pelvic vessels DVT pneumonia wound infections UTI risk of anesthesia she understands all this accepts and agrees to proceed. She has signed the [place] department of Public aid tubal consent forms and the signed consent is in the chart. Her medical history is remarkable for MTHFR, recurrent miscarriage, and history of premature delivery.
[2021-04-23] MEDS: ceFAZolin SODIUM 1 GM VIAL 2 GM IV PUSH (11:23)
[2021-04-23] MEDS: BUPIVACAINE HCL 0.25% PF 30 ML VIAL INFILTRATE (11:41)
--- NOTE | 2021-04-23 12:08 | PM.OP ---
Procedure Note - Brief Procedure Note - Brief Date of procedure: 04/23/21 Pre-op diagnosis: electve tubal sterilization Post-op diagnosis: same (elective tubal sterilization) Procedure performed: Laparoscopic bilateral tubal sterilization with bilateral complete salpingectomy Description of procedure: Informed consent obtained [facility] tubal consent form confirmed and in the chart patient taken to the operating room placed in the supine position IV general anesthesia was administered and she was oral tracheal E intubated without difficulty. Patient was placed in the semi-lithotomy position in Keegan stirrups and then prepped and then draped in the usual sterile fashion and a time-out was performed. Hulka tenaculum was placed to the uterine cervix. Infiltration of the umbilicus with Marcaine plain will was followed by infraumbilical incision and then 5 mm trocar and cannula were inserted with direct confirmation with tea room manager scope. The abdomen was tented with 3.5 L of CO2. Trocar was removed the cannula was distended with balloon inspection of the pelvic organs was then performed. Normal uterus tubes ovaries normal anterior posterior cul-de-sac normal upper abdomen. With translucent transillumination of the abdominal wall with the laparoscoped infiltration of the right left lower quadrants was then followed by incisions and placement of trial 5 mm trocar and cannulas and instrumentation was utilized through these ports. In a bilateral sequential fashion bilateral tubal sterilization was performed in the following fashion the proximal fallopian tube was endo coagulated the fimbria ovarian vessels electrocoagulated and the arcuate vessel and mesial salpinx endo coagulated. This was performed with heated graspers. The mesial salpinx fimbriae ovarian vessels and proximal tubes were then excised using heated scissors. The right left fallopian tubes were removed through the lateral port. Endo coagulation the proximal tube fimbria ovarian vessel and arcuate vessel remnants was all confirmed endo coagulated and hemostatic. The procedure was then completed the gas was removed from the abdominal cavity. The cannulas were removed. The incisions were suture approximated with 3-0 plain deep followed by Dermabond to the skin. Patient was extubated in the operating room taken recovery room stable condition. Implants: None Anesthesia: GETA Surgeon: Kenney Castro MD Automatic Corn Grinder Operator: human services assistant x2 RN FA and surgical sales representative Estimated blood loss (mL): 0 IV fluids (mL): 1,000 Urine output (mL): 100 Drains: No Packing: No Pathology: yes (Complete right and left fallopian tubes) Complications: None Condition: stable Disposition: same day Findings: Normal uterus tubes and ovaries Normal upper abdomen and cul-de-sac Hemostasis excellent along all pedicles Incisions clean dry and intact Counts correct Complications none Antibiotic prophylaxis Ancef 2 g VTE prevention SCDs Procedure performed in OR room 8. Patient extubated in the operating room taken to recovery room stable condition Idpa signed consent in the chart
[2021-04-23] MEDS: oxyCODONE HCL (*CRX) 5 MG TAB IR PO (13:30)
== END 2021-04-23 13:34 | disposition home or self-care (01) ==
PROVIDERS: PCP Physician Assistant; Visit Provider Obstetrics & Gynecology
PROC: (CPT 49320; principal; 2021-04-23 10:30)
DX: Z30.2 Encounter for sterilization (principal); D64.9 Anemia, unspecified; J45.909 Unspecified asthma, uncomplicated; K58.9 Irritable bowel syndrome, unspecified; Z87.891 Personal history of nicotine dependence
CPT/HCPCS: 58661; 88302; A9270; J0330; J0690; J1100; J1170; J1885; J2250; J2405; J2704; J3010; J7030; J7120

== ENCOUNTER 2021-10-29 12:01 | Outpatient (RCR) | payer OTHER, SELFPAY ==
--- NOTE | 2021-10-29 13:32 | PTOPEVAL ---
PHYSCIAL THERAPY INITIAL EVALUATION. Thank you for referring Karoline Berrios to [facility].? The patient is scheduled to be seen for therapy? 1x/week for 4 weeks. Please review, sign, date and return this plan of care NASEEM. I agree with and certify that the following plan of care is medically necessary. Referring Physician Date Attending Provider: Aziza Kan, PA *PT Outpatient Evaluation Start: 10/29/21 Evaluation Information Diagnosis Left knee pain Onset Aug 2021 Subjective Information Pt states this is the 3rd time Query Text:As Reported By Patient/ her knee has given her Family trouble. She states she was supposed to have an MRI right when COVID started that got cancelled, her PCP suspects a meniscus tear. She states did some of the physial therapy exercises from her first round of therapy and it seemed to help. This time, in late August she was doing Muay Estonian at the gym and was doing some kicks, she landed a kick and states her knee felt really unstable. Since then she is experiencing pain, tightness, and stiffness. She has an MRI today to look at a possible meniscus tear that her doctor suspected in 2019. Pt does Muay Estonian 3x/week and sprinting intervals. Muay Estonian consists of leg kicks, knee kick, clinching, and also receiving these hits/kicks from her training partners. Pain Assessment Left Knee(s) Reported Pain Level 3 Lowest Pain Intensity 1 Greatest Pain Intensity 7 Pain Aggravating Factors Bending,Weight Bearing/ Standing Lower Extremity Range of Motion Left Knee Flexion Range of Motion - Active 124 Knee Range of Motion Comments R knee: 0-150. L knee AROM limited by pain Lower Extremity Muscle Strength Testing Gross Lower Extremity Strength Gross strength in B LE: 5/5 Functional stregnth: - R single leg sit<>distance learning unit leader 30 seconds: 11 reps - L single leg sit <> distance learning unit leader 30 secs: 11 reps
--- NOTE | 2021-11-11 10:39 | PCPTNOTE ---
Attending Provider: Aziza Kan, PA Patient:Karoline Berrios Date of :1990 Patient called and reported that per her orientation & mobility specialist she needs to stop therapy. Patient?s initial visit was on 10/29/2021 12:30 and she had a total of 1 visit. Thank you for referring this patient to [facility]. Please review, sign, date and return this discharge summary NASEEM. I have been updated about the patient's current status and I agree with discharge from the above service at this time. Referring Physician Date
== END 2021-11-11 13:50 | disposition home or self-care (01) ==
LOC: ANHPT 12:01
PROVIDERS: PCP Physician Assistant; Visit Provider Physician Assistant
DX: M25.562 Pain in left knee (principal)
CPT/HCPCS: 97110; 97161

== ENCOUNTER 2023-05-25 15:26 | Outpatient (CLI) | payer OTHER, SELFPAY ==
--- NOTE | ~2023-05-25 | US_ITS ---
EXAMINATION: US pelvic complete w TV DATE: 05/25/2023 16:49 INDICATION: Menorrhagia. TECHNIQUE: Multiple transabdominal and transvaginal sonographic images of the pelvis were obtained. COMPARISON: Ultrasound 08/13/2020 FINDINGS: TRANSABDOMINAL ULTRASOUND: The uterus measures 8.8 x 4.6 x 2.8 cm. There is no free fluid in the pelvis. TRANSVAGINAL ULTRASOUND: The endometrial complex measures 4 mm in thickness. The right ovary measures 3.0 x 2.8 x 2.4 cm. In t he left adnexa, there is a 5.2 x 2.9 x 4.2 cm mixed hyperechoic and hypoechoic mass with small cystic areas. There is normal vascular flow in the right ovary. IMPRESSION: 1. Left adnexal mass. The imaging findings are nonspecific, and the differential diagnosis includes d ermoid, hemorrhagic cyst, and less likely neoplasm. Consider pelvis MRI without and with contrast or 6-12 week follow-up ultrasound. Reviewed, dictated and finalized at location E. IMPRESSION: 1. Left adnexal mass. The imaging findings are nonspecific, and the differentia l diagnosis includes dermoid, hemorrhagic cyst, and less likely neoplasm. Consi rusty pelvis MRI without and with contrast or 6-12 week follow-up ultrasound.
== END 2023-05-25 15:27 | disposition home or self-care (01) ==
PROVIDERS: PCP Physician Assistant; Visit Provider Physician Assistant
DX: N92.0 Excessive and frequent menstruation with regular cycle (principal)
CPT/HCPCS: 76830; 76856

== ENCOUNTER 2023-06-18 13:24 | Outpatient (CLI) | payer OTHER, SELFPAY ==
--- NOTE | ~2023-06-18 | MR_ITS ---
MRI of the pelvis CLINICAL HISTORY: Pelvic mass TECHNIQUE: Coronal SSFSE ARC, WATER:coronal LAVA-FLEX, Coronal 2D FIESTA FatSat, Axial SSFSE BH ARC, Axial 3D DualEcho BH, Axial SSFSE-IR, Axial DWI b=500, Axial 2D FIESTA FatSat, pre and dynamic postco ntrast Axial LAVA ARC, postcontrast Coronal In and Opposed phase LAVA FLEX. Following intravenous adm inistration of 11 cc MultiHance gadolinium, T1-weighted fat-sat imaging was performed in the axial an d coronal planes. Correlation made with ultrasound dated 05/25/2023. FINDINGS: Left adnexal mass measures 5.1 x 3.9 x 3.8 cm in size. The masses varying components of dif ferent signal intensities, including at least one area of apparent macroscopic fat. Findings are most consistent with ovarian dermoid. Right ovary demonstrate small follicular cysts, without significant abnormality. Uterus is unremarkab le. There is anteverted, with no abnormal thickening of the junctional zone. Urinary bladder unremarkable. No ascites. Visualized bowel loops are unremarkable. No lymphadenopathy evident. IMPRESSION: Findings most compatible with 5.1 x 3.9 x 3.8 cm left ovarian dermoid. Reviewed, dictated and finalized at location .
== END 2023-06-18 13:25 | disposition home or self-care (01) ==
LOC: ANHIMG 13:25
PROVIDERS: PCP Physician Assistant; Visit Provider Physician Assistant
DX: R19.00 Intra-abdominal and pelvic swelling, mass and lump, unspecified site (principal)
CPT/HCPCS: 72197; A9577